=== PATIENT | male | born 1940 | race Caucasian/White ===

== ENCOUNTER 2018-11-05 16:50 | Emergency (ER) | payer MEDICARE ==
[2018-11-05] MEDS ORDERED: Ondansetron PF 4 MG/2 ML Vial ONE (17:58)
[2018-11-05] MEDS ORDERED: Morphine 4 MG/ML VIAL ONE (17:58)
[2018-11-05 18:08] LABS: #Basophils 0.1 thou/uL (0.0-0.2); #Eosinphils 0.1 thou/uL (0.0-0.7); #Monocytes 0.4 thou/uL (0.11-0.59); #Neutrophils 2.8 thou/uL (1.40-6.50); %Eosinophils 1.7 % (0.0-10.0); %Monocytes 6.9 % (0.0-10.0); %Neutrophils 53.3 % (42.0-75.0); Hemoglobin 14.9 g/dL (14.0-18.0); Mean Corpuscular HGB CONC 34.2 g/dL (32.0-36.0); Mean Corpuscular Hemoglobin 33.3 pg (27.0-31.0); Mean Corpuscular Volume 97.4 fL (78.0-98.0); Mean Platelet Volume 6.3 fL (7.4-10.4); Platelet Count 274 thou/uL (130-400); Red Blood Cell (RBC) Count 4.48 mill/uL (4.70-6.10); White Blood Cell (WBC) Count 5.3 thou/uL (4.8-10.8)
[2018-11-05 18:37] LABS: ALT (SGPT) 10 U/L (8-55); AST (SGOT) 19 U/L (5-34); Albumin 4.8 g/dL (3.4-4.8); Alkaline Phosphatase 69 U/L (40-150); Anion Gap 17 mmol/L (10-20); BUN (Urea Nitrogen) 9 mg/dL (8.4-25.7); Bilirubin, Total 0.6 mg/dL (0.2-1.2); Calc. Creatinine Clearance 0 mL/min (70-130); Calcium 10.4 mg/dL (7.8-10.44); Carbon Dioxide 24 mmol/L (23-31); Chloride 102 mmol/L (98-107); Estimated GFR-MDRD 90; Glucose 88 mg/dL (83-110); Potassium 3.8 mmol/L (3.5-5.1); Protein, Total 8.8 g/dL (5.8-8.1); Sodium 139 mmol/L (136-145)
== END 2018-11-05 19:25 | disposition home or self-care (01) ==
LOC: ERS 16:50
DX: K12.2 Cellulitis and abscess of mouth (principal)
CPT/HCPCS: 80053; 83605; 85025; 87040; 96374; 96375; J2270; J2405

== ENCOUNTER 2018-11-30 18:04 | Emergency (ER) | payer MEDICARE ==
[2018-11-30 19:34] LABS: #Basophils 0.1 thou/uL (0.0-0.2); #Eosinphils 0.1 thou/uL (0.0-0.7); #Lymphocytes 1.7 thou/uL (1.20-3.40); #Monocytes 0.5 thou/uL (0.11-0.59); #Neutrophils 1.8 thou/uL (1.40-6.50); %Basophils 1.3 % (0.0-1.0); %Eosinophils 2.1 % (0.0-10.0); %Lymphocytes 41.1 % (21.0-51.0); %Monocytes 11.3 % (0.0-10.0); %Neutrophils 44.2 % (42.0-75.0); Hemoglobin 12.2 g/dL (14.0-18.0); Mean Corpuscular HGB CONC 33.2 g/dL (32.0-36.0); Mean Corpuscular Hemoglobin 32.7 pg (27.0-31.0); Mean Corpuscular Volume 98.7 fL (78.0-98.0); Platelet Count 246 thou/uL (130-400); RBC Distribution Width 14.3 % (11.5-14.5); Red Blood Cell (RBC) Count 3.72 mill/uL (4.70-6.10); White Blood Cell (WBC) Count 4.1 thou/uL (4.8-10.8)
[2018-11-30 19:55] LABS: ALT (SGPT) 17 U/L (8-55); AST (SGOT) 36 U/L (5-34); Albumin 4.3 g/dL (3.4-4.8); Alkaline Phosphatase 68 U/L (40-150); Anion Gap 14 mmol/L (10-20); BUN (Urea Nitrogen) 6 mg/dL (8.4-25.7); Bilirubin, Total 0.3 mg/dL (0.2-1.2); Calc. Creatinine Clearance 0 mL/min (70-130); Carbon Dioxide 26 mmol/L (23-31); Chloride 103 mmol/L (98-107); Estimated GFR-MDRD 87; Globulin 3.6 g/dL (2.4-3.5); Glucose 103 mg/dL (83-110); Potassium 3.6 mmol/L (3.5-5.1); Protein, Total 7.9 g/dL (5.8-8.1); Sodium 139 mmol/L (136-145)
[2018-11-30] MEDS ORDERED: HYDROcodone/Acetaminophen 5/325 mg Tablet ONE (20:13)
[2018-11-30] MEDS ORDERED: Ibuprofen 200 MG TAB ONE (20:14)
== END 2018-11-30 20:45 | disposition home or self-care (01) ==
LOC: ERS 18:04
DX: K13.0 Diseases of lips (principal)
CPT/HCPCS: 36415; 80053; 83605; 85025; 87040; 99282

== ENCOUNTER 2020-04-18 09:21 | Inpatient (IN) | payer MEDICARE, OTHER ==
[2020-04-18 09:53] LABS: #Eosinphils 0.1 thou/uL (0.0-0.7); #Lymphocytes 1.5 thou/uL (1.20-3.40); #Monocytes 0.5 thou/uL (0.11-0.59); #Neutrophils 3.3 thou/uL (1.40-6.50); %Basophils 0.5 % (0.0-1.0); %Eosinophils 1.9 % (0.0-10.0); %Lymphocytes 27.3 % (21.0-51.0); %Neutrophils 61.4 % (42.0-75.0); Hemoglobin 12.5 g/dL (14.0-18.0); Mean Corpuscular Hemoglobin 33.2 pg (27.0-31.0); Mean Platelet Volume 6.7 fL (7.4-10.4); Platelet Count 215 thou/uL (130-400); RBC Distribution Width 11.4 % (11.5-14.5); Red Blood Cell (RBC) Count 3.77 mill/uL (4.70-6.10); White Blood Cell (WBC) Count 5.4 thou/uL (4.8-10.8)
--- NOTE | 2020-04-18 10:01 | RAD ---
XR Chest 1 View Portable HISTORY: Altered mental status COMPARISON: 02/14/2020 FINDINGS: The heart size is normal. Postop changes in the neck and upper chest are again seen The enma gs are well expanded without focal areas of consolidation, pneumothorax or pleural effusions. IMPRESSION: No radiographic evidence of acute cardiopulmonary process.
[2020-04-18 10:11] LABS: ALT (SGPT) 15 U/L (8-55); AST (SGOT) 24 U/L (5-34); Albumin 3.7 g/dL (3.4-4.8); Alkaline Phosphatase 78 U/L (40-110); Anion Gap 12 mmol/L (10-20); BUN (Urea Nitrogen) 15 mg/dL (8.4-25.7); Bilirubin, Total 0.7 mg/dL (0.2-1.2); Calc. Creatinine Clearance 0 mL/min (70-130); Calcium 9.2 mg/dL (7.8-10.44); Carbon Dioxide 27 mmol/L (23-31); Chloride 99 mmol/L (98-107); Estimated GFR-MDRD Greater than 90; Globulin 3.1 g/dL (2.4-3.5); Glucose 98 mg/dL (83-110); Potassium 3.6 mmol/L (3.5-5.1); Protein, Total 6.8 g/dL (5.8-8.1); Sodium 134 mmol/L (136-145)
[2020-04-18 10:15] LABS: Bilirubin Negative (Negative); Blood, Urine Negative (Negative); Clarity Clear (Clear); Glucose, Urine (Dipstick) Normal (Negative); Ketone, Urine Negative (Negative); Leukocyte Negative Leu/uL (Negative); Nitrite Negative (Negative); Protein, Urine (Dipstick) Negative (Neg-Trace); Specific Gravity, Urine 1.012 (1.002-1.036); Urobilinogen Normal mg/dL (Less than 2)
--- NOTE | 2020-04-18 10:19 | CT ---
CT BRAIN WITHOUT CONTRAST: HISTORY: Altered mental status COMPARISON: 04/01/2020 FINDINGS: Changes of chronic small vessel ischemic disease are stable. No evidence of acute infarct, hemorrhage , midline shift or abnormal extra-axial fluid collections is seen. The ventricular size is stable and the basilar cisterns are patent. The bony calvarium is intact. The visualized paranasal sinuses a nd mastoid air cells are well aerated. IMPRESSION: No CT evidence of acute intracranial process.
[2020-04-18] MEDS ORDERED: Labetalol HCl 100 MG/20 ML VIAL SLOW IVP PRN (12:44)
[2020-04-18] MEDS ORDERED: hydrALAZINE 20 MG/ML VIAL SLOW IVP PRN (12:44)
[2020-04-18] MEDS ORDERED: Aspirin 325 mg Enteric Coated Tablet PO SCH ×2 (12:45→13:07)
[2020-04-18] MEDS ORDERED: Acetaminophen 325 MG TAB PER TUBE PRN (13:03)
--- NOTE | 2020-04-18 14:13 | HP ---
PRIMARY CARE PHYSICIAN: Mau Sahni, is in [place]. CHIEF COMPLAINT: Altered mental status. HISTORY OF PRESENT ILLNESS: The patient has a history of dementia and therefore , the majority of the H and P was taken from his spouse via telephone, her name is Gabby. The patient is a 79-year-old male with a past medical history significant for dementia, esophageal cancer with a PEG tube in place, and head, neck, and lip cancer, who presents to the ER for the above complaint. The patient's spouse reports that the patient has been agitated and combative over the past several weeks. She reports that as she approaches him, he will get confused and sometimes respond aggressively towards her. She reports that he has a history of dementia and she is his primary caregiver. According to her, he is able to perform his ADLs, bathe himself, and feed himself. He ambulates without any assistive devices; however, she also reports that he has been falling more frequently, over the past several weeks. She also reports that he has been on multiple antibiotics for recent urinary tract infections, stating that he was on nitrofurantoin and then was recently started on amoxicillin. She denies any fever, chills, abdominal pain, vomting or diarrhea. No chest pain or SOB. She also reports an active APS case is open and she is working to find help with his care. She called EMS. When EMS arrived, the patient was combative. Vital signs were stable. EMS reports that they have been called approximately 40 times in the past two months to this address. In the ER, the patient's vital signs were stable. He was mildly hypertensive, normal pulse, normal respirations, normal O2 saturation , and afebrile. EKG, normal sinus rhythm, 67 beats per minute, no ST elevations. Chest x-ray was negative for any acute process. CT of the brain was negative for any acute intracranial process. UA was unremarkable. His CMP and his CBC were also unremarkable. The patient will be admitted up to the floor for further evaluation. PAST MEDICAL HISTORY: 1. Dementia. 2. Esophageal cancer, status post PEG tube. 3. Head, neck, lip, skin cancer. PAST SURGICAL HISTORY: 1. PEG tube. 2. Skin cancer surgery. SOCIAL HISTORY: The patient lives with his spouse in [place]. He has no history of smoking; however, he did dip tobacco, he has since quit. He has no alcohol intake history. Ambulates without any assistive devices. He does not work. FAMILY HISTORY: Noncontributory to this case. ALLERGIES: NO KNOWN DRUG ALLERGIES. HOME MEDICATIONS: 1. Seroquel 50 mg p.o. b.i.d. 2. Omeprazole 40 mg p.o. daily. REVIEW OF SYSTEMS: All review of systems are negative unless otherwise stated in HPI. PHYSICAL EXAMINATION: VITAL SIGNS: Temperature 97.9, blood pressure 140/74, pulse 74, respirations 16 , and 100% on room air. CONSTITUTIONAL: The patient is alert and oriented to person, place, and time. He moves all extremities well. No focal motor deficits. He appears mildly uncomfortable, but nontoxic in appearance. He is cachectic. HEAD: Atraumatic and normocephalic. EYES: PERRLA. Extraocular muscles intact. Sclerae nonicteric. NECK: Full range of motion. No cervical spinous tenderness. No JVD. No cervical adenopathy. ENT: Bilateral TMs are intact. EACs are clear. Nares are patent. Oropharynx is clear. Uvula midline. Tacky mucous membranes. No oral lesions. RESPIRATORY/CHEST: Respirations are even and unlabored. Clear to auscultation. CARDIOVASCULAR: S1 and S2 appreciated. No murmurs, rubs, or gallops. ABDOMEN: Soft, nontender, and nondistended. Active bowel sounds. No guarding. No rigidity. No rebound. Negative Rovsing sign. Negative Norton sign. No abdominal bruit auscultated. There is a PEG tube in place. BACK: Full range of motion. No central spinous tenderness. No CVA tenderness. EXTREMITIES: Upper extremities; moves all upper extremities well. Normal strength. Sensation intact. Palpable radial pulses. Lower extremities; full range of motion, normal strength, sensation intact. Palpable pedal pulses. No swelling. NEUROLOGIC: The patient is alert and oriented to person, place, and time. Follows commands. No focal motor deficits. Moves all extremities well. Unable to assess gait. SKIN: Multiple scattered bruises at multiple stages of healing. PSYCHIATRIC: Normal affect. A and O x3. LABORATORY DATA AND DIAGNOSTICS: CT of the brain was negative for any acute process. EKG was normal sinus rhythm, no ST elevation. Chest x-ray is negative for any acute cardiopulmonary process. Sodium 134, potassium 3.6, chloride of 99, carbon dioxide 27, BUN 15, creatinine 0.81, glucose 98, calcium 9.2, total bilirubin 0.7, AST 24, ALT 15, and alkaline phosphatase 78. UA unremarkable. WBCs 5.4, hemoglobin 12.5, hematocrit 37.9, and platelets were 215. IMPRESSION AND PLAN: 1. Altered mental status. We will admit the patient to the telemetry floor inpatient status. Expected length of stay, greater than two midnights. CT of the brain was negative. We will order an MRI, carotid Doppler ultrasound, and echocardiogram. We will get baseline troponin. We will consult Stroke Team. We will give full-dose aspirin. We will check a fasting lipid profile, folate, and B12 level. We will permissive hypertension. We will get a prescreening for COVID. We will check a urine drug screen and thyroid TSH level. 2. Hyponatremia. The patient presented with a serum sodium 134, mild. The patient receives PEG tube feedings of Ensure and baby food per the through the PEG tube with unknown amount of free water. We will start gentle IV fluid hydration at 50 mL per hour. We will recheck in the a.m. 3. Frequent falls. Spouse reports that the patient has been falling more frequently. CT of the brain was negative for any acute process. The patient is not on any blood thinning medications. We will place the patient on fall precautions. 4. Dementia per spouse. The patient has a history of dementia. He apparently can perform all of his ADLs. He was alert and oriented x3 upon examination. 5. History of esophageal cancer. The patient has an extensive history of dipping tobacco. He no longer does so. He has a PEG tube in place. We will administer medications and feedings through the PEG tube per speech and dietary recommendations. 6. Gastroesophageal reflux disease. The patient has a history of gastroesophageal reflux disease per the spouse, he is on omeprazole. We will start Protonix in the hospital. 7. Sequential compression devices for deep venous thrombosis prophylaxis. No pharmaco prophylaxis secondary to frequent falls. Protonix for gastrointestinal prophylaxis. The patient is a full code. His is his surrogate decision maker, her name is Gabby, #[phone]. 8. Discussed case with Dr. Ramesh. Job ID: [id number] MTDD
[2020-04-18 14:23] LABS: Medtox Reader # READER 4
[2020-04-18 14:24] LABS: Amphetamine Not Detected (NotDetected); Barbiturates Screen Not Detected (NotDetected); Benzodiazepine Screen Not Detected (NotDetected); Cocaine Metabolite Screen Not Detected (NotDetected); Medtox Control Line Valid? VALID (VALID); Methadone Not Detected (NotDetected); Methamphetamine Not Detected (NotDetected); Opiate Screen Not Detected (NotDetected); Oxycodone Screen Not Detected (NotDetected); Phencyclidine (PCP) Not Detected (NotDetected); THC/Cannabinoid Screen Not Detected (NotDetected); Tricyclic Screen Detected (NotDetected)
[2020-04-18 15:17] VITALS: BMI 19.8
[2020-04-18 15:24] LABS: Thyroid Stimulating Hormone 1.5452 uIU/mL (0.35-4.94)
--- NOTE | 2020-04-18 15:36 | MRI ---
MRI BRAIN NONCONTRAST: DATE: 04/18/2020 HISTORY: 79-year-old male with altered mental status, TIA, and dementia. Agitation. FINDINGS: All images are degraded by patient motion. There is mild ventriculomegaly on the basis of central par enchymal volume loss. There is no obstructive hydrocephalus. There is no midline shift or any other evidence of mass effect. There is no extra-axial fluid collection. There are extensive, confluent T2- hyperintensities throughout the cerebral white matter consistent with moderate-severe chronic ischemic white matter changes due to microvascular atherosclerosis. There is diffuse brain parenchyma l volume loss. There is no evidence of recent hemorrhage or restricted diffusion. IMPRESSION: 1) Involutional changes and moderate-severe chronic ischemic white matter changes. 2) otherwise negative
--- NOTE | 2020-04-18 17:13 | ULT ---
BILATERAL CAROTID DUPLEX ULTRASOUND: HISTORY: Altered mental status TECHNIQUE: Grayscale, color-flow and spectral Doppler ultrasound imaging of the extracranial carotid artery syst ems and vertebral arteries was performed bilaterally. FINDINGS: Right carotid: There is intimal thickening, measuring 0.11 cm. Left carotid: There is intimal thickening involving the mid common carotid artery measuring 0.18 cm. There is calcified and noncalcified plaque left carotid bifurcation and proximal aren't artery. The peak systolic velocity in the right ICA measures 61.6 cm/s. The peak systolic velocity in the ri ght CCA measures 137.6 cm/s. The peak systolic velocity in the left ICA measures 53.3 cm/s. The peak systolic velocity in the l eft CCA measures 134.9 cm/s. The right IC/CC ration is0.45. The left IC/CC ratio is 0.40. Vertebral flow: antegrade, bilaterally. . IMPRESSION: Moderate (50-69%) stenosis in bilateral carotid arteries. Further evaluation with CT pamela ogram the neck is recommended.
[2020-04-18] MEDS: Sodium Chloride 0.9% 1,000 ML IV SCH (17:37)
--- NOTE | 2020-04-18 17:37 | CON ---
NEUROLOGY CONSULTATION DATE OF CONSULTATION: 04/18/2020 REASON FOR CONSULTATION: Altered mental status. HISTORY OF PRESENT ILLNESS: Mr. Fulton is a 79-year-old male with history significant for dementia, esophageal cancer, presented to the emergency room with altered mental status. The patient is unable to provide the history, so the history is taken from review of the records. Per the patient's spouse, the patient has been agitated and combative over the last several weeks. He does have history of dementia, but was able to take care of his ADLs and is able to bathe himself and feed himself. He ambulates with assistive devices. He also has history of multiple urinary tract infection. She called the EMS because the patient was extremely combative and they decided to bring him to the emergency room for further evaluation. In the emergency room, head CT was done, which was negative for acute intracranial process. Chest x-ray was also negative for acute process. CBC and CMP were also unremarkable. Urinalysis was unremarkable. REVIEW OF SYSTEMS: Positive for agitation. PAST MEDICAL HISTORY: 1. Dementia. 2. Esophageal cancer, status post PEG tube placement. 3. Head, neck, lip cancer. PAST SURGICAL HISTORY: 1. Status post PEG tube placement. 2. Skin cancer. SOCIAL HISTORY: . Lives with spouse. Denies smoking. Denies alcohol or illegal drug use. He ambulates with assistive devices. Does not work. FAMILY HISTORY: No family history of stroke. ALLERGIES: NO KNOWN DRUG ALLERGIES. HOME MEDICATIONS: 1. Seroquel 50 mg twice daily. 2. Omeprazole 40 mg daily. PHYSICAL EXAMINATION: VITAL SIGNS: Blood pressure 140/70, pulse 80, respiratory rate 18. CVS: Regular rate and rhythm. CHEST: Clear. ABDOMEN: Soft. NECK: Supple. ABDOMEN: PEG tube in place. EXTREMITIES: No clubbing, cyanosis, or edema. NEUROLOGICAL: The patient is alert and oriented to person, place, and time. He follows commands appropriately. Speech is clear. Motor; muscle tone and bulk are normal. Strength; moving all 4 extremities equally and symmetrically. Sensory intact. Cerebellar, finger-nose testing intact. Cranial nerves 2 through 12 intact. Gait within normal limits. DATA REVIEWED: MRI brain reviewed and was negative for acute process. ASSESSMENT AND PLAN: Mr. Neil Fulton is admitted for altered mental status. Altered mental status may be may be multifactorial secondary to worsening dementia or metabolic etiology. The patient has mild hyponatremia. TIA is also in the differential. MRI of the brain reviewed, which was negative for acute intracranial process. Recommend EEG to evaluate for underlying seizure activity. Recommend aspirin and statin for secondary stroke prevention. Recommend carotid dopplers and 2 D echocardiography. Neuro checks every 4 hours. Continue home medications. Continue medical management per primary team. Further recommendations depends on the result of the testing. We will continue to follow. Thank you for the consult. Job ID: [id number] ABBY
[2020-04-19 05:34] LABS: #Lymphocytes 0.8 thou/uL (1.20-3.40); #Monocytes 0.5 thou/uL (0.11-0.59); #Neutrophils 4.1 thou/uL (1.40-6.50); %Basophils 0.2 % (0.0-1.0); %Eosinophils 0.6 % (0.0-10.0); %Lymphocytes 14.9 % (21.0-51.0); %Monocytes 8.3 % (0.0-10.0); %Neutrophils 75.9 % (42.0-75.0); Mean Corpuscular HGB CONC 32.5 g/dL (32.0-36.0); Mean Corpuscular Volume 98.6 fL (78.0-98.0); Mean Platelet Volume 6.7 fL (7.4-10.4); Platelet Count 244 thou/uL (130-400); RBC Distribution Width 11.2 % (11.5-14.5); Red Blood Cell (RBC) Count 4.07 mill/uL (4.70-6.10); White Blood Cell (WBC) Count 5.4 thou/uL (4.8-10.8)
[2020-04-19 06:02] LABS: Anion Gap 14 mmol/L (10-20); BUN (Urea Nitrogen) 10 mg/dL (8.4-25.7); Calc. Creatinine Clearance 74 mL/min (70-130); Calcium 9.7 mg/dL (7.8-10.44); Carbon Dioxide 27 mmol/L (23-31); Chloride 100 mmol/L (98-107); Cholesterol 153 mg/dl (< 200 Desired); Estimated GFR-MDRD Greater than 90; Glucose 99 mg/dL (83-110); HDL Cholesterol 51 mg/dL (>60 Neg Risk); LDL Cholesterol, Calculated 87 mg/dL; Potassium 3.7 mmol/L (3.5-5.1); Sodium 137 mmol/L (136-145); Triglycerides 77 mg/dL (Less than 150)
[2020-04-19] MEDS ORDERED: Prevnar 13-Val Conj/PF 0.5 ML SYRINGE IM ONE (09:00)
[2020-04-19] MEDS ORDERED: Aspirin 81 mg Enteric Coated Tablet PO SCH (09:00)
[2020-04-19] MEDS ORDERED: Aspirin 325 MG TAB PER TUBE SCH (09:00)
[2020-04-19] MEDS ORDERED: Non-Formulary Item 1 EACH (Omeprazole [Omeprazole] 40 MG) PER TUBE SCH (09:00)
[2020-04-19] MEDS ORDERED: Pantoprazole 40 MG VIAL IVP SCH (09:00)
[2020-04-19] MEDS ORDERED: Non-Formulary Item 1 EACH (Quetiapine Fumarate [Seroquel] 50 MG) PER TUBE SCH (09:00)
[2020-04-19] MEDS ORDERED: Pantoprazole 40 MG GRANULES PACKET PER TUBE SCH (09:15)
--- NOTE | 2020-04-19 11:33 | PDOC.HOSPP ---
- Subjective Encounter Date: 04/19/20 Subjective: NEUROLOGY PROGRESS NOTE. No acute issues overnight. MRI Brain negative and EEG negative. - Objective Vital Signs & Weight: Vital Signs (12 hours) Temp Pulse Pulse Pulse Resp BP BP 04/19/20 09:27 95 100 160/94 H 151/112 H 04/19/20 09:26 95 100 160/94 H 151/112 H 04/19/20 08:00 97.4 F L 120 H 16 04/19/20 04:00 97.8 F 90 16 04/19/20 00:00 98.8 F 95 20 BP Pulse Ox 04/19/20 09:27 04/19/20 09:26 04/19/20 08:00 210/111 H 96 04/19/20 04:00 175/108 H 99 04/19/20 00:00 167/117 H 97 Weight Admit Weight 146 lb 9.6 oz Weight 146 lb 9.6 oz I&O: 04/18/20 04/19/20 04/20/20 06:59 06:59 06:59 Intake Total 50 Output Total 1530 Balance -1480 Result Diagrams: 04/19/20 05:17 04/19/20 05:17 Radiology Reviewed by me: Yes EKG Reviewed by me: Yes Hospitalist ROS - Review of Systems ROS unobtainable: due to mental status - Medication Medications: Active Medications Generic Name Dose Route Start Last Admin Trade Name Freq PRN Reason Stop Dose Admin Sodium Chloride 1,000 mls @ 50 mls/hr 04/18/20 12:45 04/18/20 17:37 Normal Saline 0.9% IV 1,000 mls .Q20H AIDA Administration - Exam General Appearance: awake alert Eye: PERRL ENT: normocephalic atraumatic Neck: supple Heart: RRR Respiratory: CTAB Gastrointestinal: soft Extremities: no cyanosis Skin: normal turgor Neurological: no focal deficits Psychiatric: not oriented Hosp A/P (1) AMS (altered mental status) Code(s): R41.82 - ALTERED MENTAL STATUS, UNSPECIFIED Status: Acute - Plan PT/OT, speech therapy, DVT proph w/SCDs 79 year old presented with altered mental status and combativeness. Most likely worsening dementia. TIA is also in the differential. EEG reviewed and was negative for underlying seizure activity. MRI brain reviewed and was negative for acute intracranial process. Continue aspirin and high intensity statin for secondary stroke prevention. Continue Telemetry. Carotid dopplers unremarkable. Neurochecks every 4 hours. PT/OT/Speech. Strict control of BG and BG. PT/OT/Speech. CM on board regarding discharge planning. Continue medical management per primary team. Plan discussed with the floor team during MDR rounds
[2020-04-19] MEDS ORDERED: Iopamidol-370 76% 500 ML 1 ML ONE (11:41)
[2020-04-19] MEDS: Metoprolol Tartrate 25 MG TAB PO SCH ×2 (12:09→21:39)
[2020-04-19] MEDS: Amlodipine 5 MG TAB PO SCH (12:09)
[2020-04-19 12:10] LABS: SARS-CoV-2 MS2 Positive; SARS-CoV-2 N Gene Negative; SARS-CoV-2 S Gene Negative; SARS-CoV-2 by NAA Not Detected (NotDetected); SARS-CoV-2 orf1ab Negative
--- NOTE | 2020-04-19 13:16 | EEG ---
DATE OF SERVICE: 04/19/2020 ATTENDING PHYSICIAN: Lorrie Vasquez MD. This EEG was performed using 24-channel [employer] video digital EEG machine with 24- disk electrodes. This was a routine EEG recording. BACKGROUND: The posterior background rhythm was not observed. HYPERVENTILATION: Not performed. PHOTIC STIMULATION: Not performed. SLEEP: No stage change was observed. EEG DIAGNOSES: 1. Intermittent irregular theta activity is seen during the recording. 2. Absence of posterior background rhythm. CLINICAL INTERPRETATION: This EEG is consistent with moderate generalized nonspecific cerebral dysfunction. No ictal or interictal epileptiform abnormalities seen during the recording. Job ID: [id number] [facility]
--- NOTE | 2020-04-19 16:00 | PDOC.HOSPP ---
- Subjective Encounter Date: 04/19/20 Encounter Time: 11:15 Subjective: pt up in bed oriented x2 - Objective Vital Signs & Weight: Vital Signs (12 hours) Temp Pulse Pulse Pulse Resp BP BP 04/19/20 15:33 98.1 F 78 16 04/19/20 12:09 94 188/106 H 04/19/20 11:42 97.4 F L 94 16 04/19/20 09:27 95 100 160/94 H 04/19/20 09:26 95 100 160/94 H 04/19/20 08:00 97.4 F L 120 H 16 04/19/20 04:00 97.8 F 90 16 BP BP Pulse Ox 04/19/20 15:33 120/70 100 04/19/20 12:09 04/19/20 11:42 188/106 H 99 04/19/20 09:27 151/112 H 04/19/20 09:26 151/112 H 04/19/20 08:00 210/111 H 96 04/19/20 04:00 175/108 H 99 Weight Admit Weight 146 lb 9.6 oz Weight 146 lb 9.6 oz I&O: 04/18/20 04/19/20 04/20/20 06:59 06:59 06:59 Intake Total 50 474 Output Total 1530 Balance -1480 474 Result Diagrams: 04/19/20 05:17 04/19/20 05:17 Hospitalist ROS - Review of Systems Cardiovascular: denies: chest pain, palpitations, orthopnea, paroxysmal noc. dyspnea, edema, light headedness, other Gastrointestinal: denies: nausea, vomiting, abdominal pain, diarrhea, constipation, melena, hematochezia, other Genitourinary: denies: dysuria, frequency, incontinence, hematuria, retention, other - Medication Medications: Active Medications Generic Name Dose Route Start Last Admin Trade Name Freq PRN Reason Stop Dose Admin Amlodipine Besylate 5 mg 04/19/20 09:00 04/19/20 12:09 Norvasc PO 5 mg DAILY AIDA Administration Sodium Chloride 1,000 mls @ 50 mls/hr 04/18/20 12:45 04/18/20 17:37 Normal Saline 0.9% IV 1,000 mls .Q20H AIDA Administration Metoprolol Tartrate 25 mg 04/19/20 09:00 04/19/20 12:09 Lopressor PO 25 mg BID AIDA Administration - Exam ENT - other findings: some ulceration noted to neck, Neck: negative: supple, symmetric, no JVD, no thyromegaly, no lymphadenopathy, no carotid bruit, JVD Heart: negative: RRR, no murmur, no gallops, no rubs, normal peripheral pulses, irregular, diminshed peripheral pulses, murmur present, II/IV, III/IV Respiratory: negative: CTAB, no wheezes, no rales, no ronchi, normal chest expansion, no tachypnea, normal percussion, rales, rhonchi, tachypneic, wheezes Gastrointestinal: negative: soft, non-tender, non-distended, normal bowel sounds , no palpable masses, no hepatomegaly, no splenomegaly, no bruit, no guarding, no rigidity, tender to palpation, distended, diminished bowl sounds, voluntary guarding Extremities: 1+ LE edema Hosp A/P (1) Acute metabolic encephalopathy Code(s): G93.41 - METABOLIC ENCEPHALOPATHY Status: Acute (2) Dementia Code(s): F03.90 - UNSPECIFIED DEMENTIA WITHOUT BEHAVIORAL DISTURBANCE Status: Acute (3) Dysphagia Code(s): R13.10 - DYSPHAGIA, UNSPECIFIED Status: Acute (4) Esophageal cancer Status: Acute - Plan pt's mri/eeg negative. carotid Doppler indicated moderate stenosis bilaterally. will get cta. pt on peg feeding for now. will get MBS in am. pt's cannot take care of pt at home. will continue home meds. bp is labile will add bp meds. pt will need to go to snf.
[2020-04-19] MEDS: Sodium Chloride 0.9% 1,000 ML IV SCH (17:26)
--- NOTE | 2020-04-19 17:57 | CT ---
EXAM: CTA neck with contrast HISTORY: Carotid stenosis on recent carotid ultrasound COMPARISON: Carotid ultrasound 04/18/2020 TECHNIQUE: Multiple contiguous axial images were obtained and a CTA of the neck with contrast. 3-D sagittal and coronal MIP reformats were performed. FINDINGS: CTA NECK: There are postsurgical changes in the bilateral neck. Aortic arch: Normal origin of the carotid arteries from the arch. No significant atherosclerotic dise ase of the subclavian arteries. Right common carotid artery: No significant atherosclerotic disease or narrowing Left common carotid artery: No significant atherosclerotic disease or narrowing Right internal carotid artery: No significant atherosclerotic disease or narrowing per NASCET criteri a Right external carotid artery: No significant atherosclerotic disease or narrowing Left internal carotid artery: No significant atherosclerotic disease or narrowing per NASCET criteri a Left external carotid artery: No significant atherosclerotic disease or narrowing Right cervical vertebral artery: No significant atherosclerotic disease or narrowing Left cervical vertebral artery: No significant atherosclerotic disease or narrowing No cervical adenopathy. The lung apices are unremarkable. Degenerative changes are seen in the spine and shoulders. IMPRESSION: No significant CTA abnormality of the neck
[2020-04-19] MEDS ORDERED: MIRTAZAPINE 7.5 MG PER TUBE SCH (21:00)
[2020-04-19] MEDS: Mirtazapine 15 MG TAB PER TUBE SCH (21:39)
[2020-04-20] MEDS: Pantoprazole 40 MG GRANULES PACKET PER TUBE SCH (10:29)
[2020-04-20] MEDS: Amlodipine 5 MG TAB PO SCH (10:30)
[2020-04-20] MEDS: Metoprolol Tartrate 25 MG TAB PO SCH ×2 (10:30→21:33)
--- NOTE | 2020-04-20 20:48 | PDOC.HOSPP ---
- Subjective Encounter Date: 04/20/20 Encounter Time: 10:00 Subjective: no overnight events. This morning, nurse reported that patient is not responding even though responded to transport tank technician earlier. On encounter, awake but not responding, then closes eyes and not responding, but immediately upon sternal rub moves away my hand and responds verbally. Appears to behaviorally related. - Objective Vital Signs & Weight: Vital Signs (12 hours) Temp Pulse Resp BP BP Pulse Ox 04/20/20 15:31 98.4 F 62 16 104/68 99 04/20/20 11:00 97.5 F L 63 17 111/66 95 04/20/20 10:30 66 118/68 Weight Admit Weight 146 lb 9.6 oz Weight 146 lb 9.6 oz I&O: 04/19/20 04/20/20 04/21/20 06:59 06:59 06:59 Intake Total 50 1123 474 Output Total 1530 300 725 Balance -1480 823 -251 Result Diagrams: 04/19/20 05:17 04/19/20 05:17 Hospitalist ROS - Review of Systems ROS unobtainable: due to mental status (not cooperative) - Medication Medications: Active Medications Generic Name Dose Route Start Last Admin Trade Name Freq PRN Reason Stop Dose Admin Amlodipine Besylate 5 mg 04/19/20 09:00 04/20/20 10:30 Norvasc PO 5 mg DAILY AIDA Administration Metoprolol Tartrate 25 mg 04/19/20 09:00 04/20/20 10:30 Lopressor PO 25 mg BID AIDA Administration Mirtazapine 7.5 mg 04/19/20 21:00 04/19/20 21:39 Remeron PER TUBE 7.5 mg HS AIDA Administration Pantoprazole Sodium 40 mg 04/20/20 09:00 04/20/20 10:29 Protonix PER TUBE 40 mg DAILY AIDA Administration Quetiapine Fumarate 50 mg 04/19/20 21:00 04/20/20 10:30 Seroquel PER TUBE 50 mg BID AIDA Administration Sodium Chloride 10 ml 04/18/20 12:44 04/20/20 10:30 Flush - Normal Saline IVF 10 ml PRN PRN Administration Saline Flush - Exam General Appearance: NAD, awake alert Heart: RRR, no murmur, no gallops, no rubs Respiratory: CTAB, no wheezes, no rales, no ronchi Gastrointestinal: soft, non-tender, non-distended Extremities: no edema Psychiatric - other findings: agitated and not cooperative Hosp A/P - Plan #Dementia workup for acute stroke/TIA negative brain imaging shows moderate/severe chronic white matter ischemia; may be vascular and/or frontotemporal dementia; treating of underlying etiology ( atherosclerosis) and symptomatic (frontotemporal) -continue current management -pending placement -updated regarding condition and pending placement. Requested that piano case and bench assembler contacts her regarding placement ELOS: 1-2 nights
[2020-04-20] MEDS: Mirtazapine 15 MG TAB PER TUBE SCH (21:33)
[2020-04-21] MEDS: Amlodipine 5 MG TAB PO SCH (10:26)
[2020-04-21] MEDS: Pantoprazole 40 MG GRANULES PACKET PER TUBE SCH (10:26)
[2020-04-21] MEDS: Metoprolol Tartrate 25 MG TAB PO SCH ×2 (10:27→21:48)
--- NOTE | 2020-04-21 13:47 | PDOC.HOSPP ---
- Subjective Encounter Date: 04/21/20 Encounter Time: 09:00 Subjective: no overnight events. this morning, feeling better and verbally responding, cooperative. Has no complaints. - Objective Vital Signs & Weight: Vital Signs (12 hours) Temp Pulse Resp BP Pulse Ox 04/21/20 11:51 98.7 F 62 16 111/67 99 04/21/20 10:26 100 04/21/20 07:22 97.8 F 81 16 137/76 100 04/21/20 04:10 97.8 F 62 16 108/62 97 Weight Admit Weight 146 lb 9.6 oz Weight 146 lb 9.6 oz I&O: 04/20/20 04/21/20 04/22/20 06:59 06:59 06:59 Intake Total 1123 1123 649 Output Total 300 725 480 Balance 823 398 169 Result Diagrams: 04/19/20 05:17 04/19/20 05:17 Hospitalist ROS - Review of Systems Constitutional: denies: chills, sweats Respiratory: denies: cough, dry, shortness of breath Cardiovascular: denies: chest pain, palpitations, orthopnea Gastrointestinal: denies: nausea, vomiting, abdominal pain, diarrhea Genitourinary: denies: dysuria, frequency, hematuria - Medication Medications: Active Medications Generic Name Dose Route Start Last Admin Trade Name Freq PRN Reason Stop Dose Admin Amlodipine Besylate 5 mg 04/19/20 09:00 04/21/20 10:26 Norvasc PO 5 mg DAILY AIDA Administration Metoprolol Tartrate 25 mg 04/19/20 09:00 04/21/20 10:27 Lopressor PO 25 mg BID AIDA Administration Mirtazapine 7.5 mg 04/19/20 21:00 04/20/20 21:33 Remeron PER TUBE 7.5 mg HS AIDA Administration Pantoprazole Sodium 40 mg 04/20/20 09:00 04/21/20 10:26 Protonix PER TUBE 40 mg DAILY AIDA Administration Quetiapine Fumarate 50 mg 04/19/20 21:00 04/21/20 10:27 Seroquel PER TUBE 50 mg BID AIDA Administration Sodium Chloride 10 ml 04/18/20 12:44 04/21/20 10:28 Flush - Normal Saline IVF 10 ml PRN PRN Administration Saline Flush - Exam General Appearance: NAD, awake alert Heart: RRR, no murmur Respiratory: CTAB, no wheezes, no rales, no ronchi Gastrointestinal: soft, non-tender, normal bowel sounds Extremities: no edema Musculoskeletal - other findings: 5/5 upper extremities; 4/5 lower extremities Psychiatric: normal affect, normal behavior, oriented to person, oriented to place. negative: oriented to time Hosp A/P - Plan #Dementia workup for acute stroke/TIA negative brain imaging shows moderate/severe chronic white matter ischemia; may be vascular and/or frontotemporal dementia; treating of underlying etiology ( atherosclerosis) and symptomatic (frontotemporal) -continue current management -pending placement -updated regarding condition and pending placement. Requested that shelter case manager contacts her regarding placement ELOS: 1-2 nights pending placement
[2020-04-21] MEDS: Mirtazapine 15 MG TAB PER TUBE SCH (21:48)
[2020-04-22] MEDS: Pantoprazole 40 MG GRANULES PACKET PER TUBE SCH (10:43)
[2020-04-22] MEDS: Metoprolol Tartrate 25 MG TAB PO SCH ×2 (10:44→21:31)
[2020-04-22] MEDS: Amlodipine 5 MG TAB PO SCH (10:44)
--- NOTE | 2020-04-22 11:47 | RAD ---
Modified barium swallow HISTORY: Dysphagia. Feeding difficulties. Fluoroscopy time 0.5 minutes. FINDINGS: Exam was performed in conjunction with speech pathology. Patient was very reluctant to part icipate. A small amount of thin barium liquid was swallowed with very poor oral control. Deep penetration seen with minimal contrast. Neil aspiration not evident. Please see separate detailed report from speech pathology.
--- NOTE | 2020-04-22 15:05 | PDOC.HOSPP ---
- Subjective Encounter Date: 04/22/20 Subjective: NEUROLOGY PROGRESS NOTE. Patient awake and alert. No acute issues overnight. MRI Brain negative and EEG negative. - Objective Vital Signs & Weight: Vital Signs (12 hours) Temp Pulse Resp BP BP Pulse Ox 04/22/20 12:00 97.7 F 72 16 116/75 97 04/22/20 10:44 85 144/89 H 04/22/20 07:44 98.4 F 95 16 148/75 H 96 04/22/20 04:34 98.1 F 93 18 128/77 96 Weight Admit Weight 146 lb 9.6 oz Weight 146 lb 9.6 oz I&O: 04/21/20 04/22/20 04/23/20 06:59 06:59 06:59 Intake Total 1123 1823 Output Total 725 480 Balance 398 1343 Result Diagrams: 04/19/20 05:17 04/19/20 05:17 Radiology Reviewed by me: Yes EKG Reviewed by me: Yes Hospitalist ROS - Review of Systems Constitutional: denies: fever, chills, sweats, weakness, malaise, other Eyes: denies: pain, vision change, conjunctivae inflammation, eyelid inflammation, redness, other ENT: denies: ear pain, ear discharge, nose pain, nose discharge, nose congestion , mouth pain, mouth swelling, throat pain, throat swelling, other Respiratory: denies: cough, dry, shortness of breath, hemoptysis, SOB with excertion, pleuritic pain, sputum, wheezing, other Cardiovascular: denies: chest pain, palpitations, orthopnea, paroxysmal noc. dyspnea, edema, light headedness, other Gastrointestinal: denies: nausea, vomiting, abdominal pain, diarrhea, constipation, melena, hematochezia, other Genitourinary: denies: dysuria, frequency, incontinence, hematuria, retention, other Musculoskeletal: denies: neck pain, shoulder pain, arm pain, back pain, hand pain, leg pain, foot pain, other Skin: denies: rash, lesions, jovi, bruising, other - Medication Medications: Active Medications Generic Name Dose Route Start Last Admin Trade Name Freq PRN Reason Stop Dose Admin Amlodipine Besylate 5 mg 04/19/20 09:00 04/22/20 10:44 Norvasc PO 5 mg DAILY AIDA Administration Metoprolol Tartrate 25 mg 04/19/20 09:00 04/22/20 10:44 Lopressor PO 25 mg BID AIDA Administration Mirtazapine 7.5 mg 04/19/20 21:00 04/21/20 21:48 Remeron PER TUBE 7.5 mg HS AIDA Administration Pantoprazole Sodium 40 mg 04/20/20 09:00 04/22/20 10:43 Protonix PER TUBE 40 mg DAILY AIDA Administration Quetiapine Fumarate 50 mg 04/19/20 21:00 04/22/20 10:43 Seroquel PER TUBE 50 mg BID AIDA Administration Sodium Chloride 10 ml 04/18/20 12:44 04/21/20 10:28 Flush - Normal Saline IVF 10 ml PRN PRN Administration Saline Flush - Exam General Appearance: awake alert Eye: PERRL ENT: normocephalic atraumatic Neck: supple Heart: RRR Respiratory: CTAB Gastrointestinal: soft Extremities: no cyanosis Skin: normal turgor Neurological: cranial nerve grossly intact, no focal deficits, no new deficit Musculoskeletal: no muscle wasting Psychiatric: normal affect, normal behavior, oriented to person, oriented to place Hosp A/P (1) AMS (altered mental status) Code(s): R41.82 - ALTERED MENTAL STATUS, UNSPECIFIED Status: Acute - Plan PT/OT, speech therapy 79 year old presented with altered mental status and combativeness. Most likely worsening dementia. TIA is also in the differential so work up completed.. Clinically stable. Awaiting placement. CM on board regarding discharge planning. EEG reviewed and was negative for underlying seizure activity. MRI brain reviewed and was negative for acute intracranial process. Continue aspirin and high intensity statin for secondary stroke prevention. Continue Telemetry. Carotid dopplers unremarkable. Neurochecks every 4 hours. PT/OT/Speech. Strict control of BG and BG. Continue home medications. Continue medical management per primary team. Plan discussed with the floor team during MDR rounds
--- NOTE | 2020-04-22 15:16 | PDOC.HOSPP ---
- Subjective Encounter Date: 04/22/20 Encounter Time: 08:00 Subjective: no overnight events. this morning feeling well and has no complaints. Failed barium swallow so keep NPO with PEG feeds - Objective Vital Signs & Weight: Vital Signs (12 hours) Temp Pulse Resp BP BP Pulse Ox 04/22/20 12:00 97.7 F 72 16 116/75 97 04/22/20 10:44 85 144/89 H 04/22/20 07:44 98.4 F 95 16 148/75 H 96 04/22/20 04:34 98.1 F 93 18 128/77 96 Weight Admit Weight 146 lb 9.6 oz Weight 146 lb 9.6 oz I&O: 04/21/20 04/22/20 04/23/20 06:59 06:59 06:59 Intake Total 1123 1823 Output Total 725 480 Balance 398 1343 Result Diagrams: 04/19/20 05:17 04/19/20 05:17 Hospitalist ROS - Review of Systems Constitutional: denies: fever, chills, sweats Respiratory: denies: cough, dry, shortness of breath Cardiovascular: denies: chest pain, palpitations, orthopnea Gastrointestinal: denies: nausea, vomiting, abdominal pain Genitourinary: denies: dysuria, frequency, incontinence - Medication Medications: Active Medications Generic Name Dose Route Start Last Admin Trade Name Freq PRN Reason Stop Dose Admin Amlodipine Besylate 5 mg 04/19/20 09:00 04/22/20 10:44 Norvasc PO 5 mg DAILY AIDA Administration Metoprolol Tartrate 25 mg 04/19/20 09:00 04/22/20 10:44 Lopressor PO 25 mg BID AIDA Administration Mirtazapine 7.5 mg 04/19/20 21:00 04/21/20 21:48 Remeron PER TUBE 7.5 mg HS AIDA Administration Pantoprazole Sodium 40 mg 04/20/20 09:00 04/22/20 10:43 Protonix PER TUBE 40 mg DAILY AIDA Administration Quetiapine Fumarate 50 mg 04/19/20 21:00 04/22/20 10:43 Seroquel PER TUBE 50 mg BID AIDA Administration Sodium Chloride 10 ml 04/18/20 12:44 04/21/20 10:28 Flush - Normal Saline IVF 10 ml PRN PRN Administration Saline Flush - Exam General Appearance: NAD, awake alert Neck: no JVD Heart: RRR, no murmur, no gallops, no rubs Respiratory: CTAB, no wheezes, no rales, no ronchi Gastrointestinal: soft, non-tender, non-distended, normal bowel sounds Extremities: no edema Psychiatric: normal affect, normal behavior, A&O x 3 Hosp A/P - Plan #Dementia workup for acute stroke/TIA negative brain imaging shows moderate/severe chronic white matter ischemia; may be vascular and/or frontotemporal dementia; treating of underlying etiology ( atherosclerosis) and symptomatic (frontotemporal) -continue current management -pending placement -updated regarding condition and pending placement. ELOS: 1-2 nights pending placement
[2020-04-22] MEDS: Mirtazapine 15 MG TAB PER TUBE SCH (21:31)
[2020-04-23 05:21] LABS: Anion Gap 14 mmol/L (10-20); BUN (Urea Nitrogen) 9 mg/dL (8.4-25.7); Calc. Creatinine Clearance 66 mL/min (70-130); Calcium 9.7 mg/dL (7.8-10.44); Carbon Dioxide 26 mmol/L (23-31); Chloride 102 mmol/L (98-107); Estimated GFR-MDRD 87; Glucose 107 mg/dL (83-110); Magnesium 2.1 mg/dL (1.6-2.6); Potassium 3.8 mmol/L (3.5-5.1); Sodium 138 mmol/L (136-145)
[2020-04-23] MEDS: Amlodipine 5 MG TAB PO SCH (12:18)
[2020-04-23] MEDS: Metoprolol Tartrate 25 MG TAB PO SCH (12:18)
[2020-04-23] MEDS: Pantoprazole 40 MG GRANULES PACKET PER TUBE SCH (12:18)
--- NOTE | 2020-04-23 14:15 | PDOC.HOSPP ---
- Subjective Encounter Date: 04/23/20 Subjective: NEUROLOGY PROGRESS NOTE. Patient somnolent and does not follow commands. No acute issues overnight. MRI Brain negative and EEG negative. - Objective Vital Signs & Weight: Vital Signs (12 hours) Temp Pulse Resp BP BP Pulse Ox 04/23/20 12:18 88 04/23/20 11:24 97.5 F L 83 20 128/79 99 04/23/20 07:16 97.8 F 80 20 118/71 99 04/23/20 04:00 97.6 F 98 20 169/98 H 98 Weight Admit Weight 146 lb 9.6 oz Weight 146 lb 9.6 oz I&O: 04/22/20 04/23/20 04/24/20 06:59 06:59 06:59 Intake Total 1823 45 874 Output Total 480 1200 Balance 1343 -1155 874 Result Diagrams: 04/19/20 05:17 04/23/20 04:45 Radiology Reviewed by me: Yes EKG Reviewed by me: Yes Hospitalist ROS - Review of Systems ROS unobtainable: due to mental status - Medication Medications: Active Medications Generic Name Dose Route Start Last Admin Trade Name Freq PRN Reason Stop Dose Admin Amlodipine Besylate 5 mg 04/19/20 09:00 04/23/20 12:18 Norvasc PO 5 mg DAILY AIDA Administration Metoprolol Tartrate 25 mg 04/19/20 09:00 04/23/20 12:18 Lopressor PO 25 mg BID AIDA Administration Mirtazapine 7.5 mg 04/19/20 21:00 04/22/20 21:31 Remeron PER TUBE 7.5 mg HS AIDA Administration Pantoprazole Sodium 40 mg 04/20/20 09:00 04/23/20 12:18 Protonix PER TUBE 40 mg DAILY AIDA Administration Quetiapine Fumarate 50 mg 04/19/20 21:00 04/23/20 12:18 Seroquel PER TUBE 50 mg BID AIDA Administration Sodium Chloride 10 ml 04/18/20 12:44 04/22/20 21:32 Flush - Normal Saline IVF 10 ml PRN PRN Administration Saline Flush - Exam General Appearance: NAD Eye: PERRL ENT: normocephalic atraumatic Neck: supple Heart: RRR Respiratory: CTAB Gastrointestinal: soft Extremities: no cyanosis Neurological: no new deficit Psychiatric: not oriented Hosp A/P (1) AMS (altered mental status) Code(s): R41.82 - ALTERED MENTAL STATUS, UNSPECIFIED Status: Acute - Plan PT/OT, speech therapy 79 year old presented with altered mental status and combativeness. Most likely worsening dementia. TIA is also in the differential so work up completed which is negative. Clinically stable. Awaiting placement. Failed modified Barium swallow. On PEG feeds. CM on board regarding discharge planning. EEG reviewed and was negative for underlying seizure activity. MRI brain reviewed and was negative for acute intracranial process. Continue aspirin and high intensity statin for secondary stroke prevention. Continue Telemetry. Carotid dopplers unremarkable. Neurochecks every 4 hours. PT/OT/Speech. Strict control of BG and BG. Continue home medications. Continue medical management per primary team. Plan discussed with the floor team during MDR rounds
[2020-04-23 15:45] VITALS: BP 136/82; TEMP 97.4
[2020-04-23] MEDS ORDERED: Bisacodyl 10 MG SUPP PR SCH (16:00)
--- NOTE | 2020-04-24 02:50 | DIS ---
DATE OF ADMISSION: 04/18/2020 DATE OF DISCHARGE: 04/23/2020 HOSPITAL COURSE: Mr. Fulton is a 79-year-old male with a medical history of dementia and esophageal cancer resulting in chronic dysphagia and PEG tube placement, presents for increased agitation in the past several weeks prior to presentation. The patient underwent a complete infectious and stroke workup, that was found negative. Brain MRI did show [id number] chronic ischemic white matter changes due to microvascular atherosclerosis. The patient was diagnosed with worsening vascular dementia. During his inpatient stay, a swallow study was done considering the was feeding the patient through the mouth and the patient failed. The patient progressively improved during his inpatient stay and after discussion with the , it was decided to send the patient to a [facility] facility for continued care. On the day of discharge, the patient was feeling well and had no complaints. PHYSICAL EXAMINATION: VITAL SIGNS: Blood pressure 136/82, pulse 76, respiratory rate 20, oxygen saturation 97% on room air, and temperature 97.4. GENERAL APPEARANCE: Lying comfortably in bed. Awake and alert. NECK: No JVD. HEART: Regular rate and rhythm. No murmurs, gallops, or rubs. RESPIRATORY: Clear to auscultation bilaterally. No wheezing, rales, or rhonchi. GI: Soft, nontender, and nondistended. Normal bowel sounds. EXTREMITIES: No edema. PSYCHIATRIC: Proper mood and affect. Alert and oriented x1 to place, which is his baseline. MEDICATION LIST: New medication; 1. Amlodipine 5 mg p.o. daily. 2. Metoprolol tartrate 25 mg p.o. b.i.d. Continued medications; 1. Mirtazapine. 2. Quetiapine. 3. Omeprazole. Discontinued medications, nitrofurantoin. Job ID: [id number]
== END 2020-04-23 17:17 | DRG 884 ==
LOC: ERS 09:21 → 2SE 12:06
PROVIDERS: ADMIT Internal Medicine; ATTEND Internal Medicine
DX: F01.51 Vascular dementia, unspecified severity, with behavioral disturbance (principal); G93.41 Metabolic encephalopathy; E87.1 Hypo-osmolality and hyponatremia; C15.9 Malignant neoplasm of esophagus, unspecified; R29.6 Repeated falls; K21.9 Gastro-esophageal reflux disease without esophagitis; Z20.828 Contact with and (suspected) exposure to other viral communicable diseases; Z85.819 Personal history of malignant neoplasm of unspecified site of lip, oral cavity, and pharynx; Z87.891 Personal history of nicotine dependence; Z85.828 Personal history of other malignant neoplasm of skin
CPT/HCPCS: 36415; 51701; 70450; 70498; 70551; 71045; 74230; 80048; 80053; 80061; 80306; 81003; 82140; 82607; 82746; 83735; 84443; 84484; 85025; 87086; 87635; 93005; 93306; 93880; 95816; 95819; Q9967; U0003